=== PATIENT | female | born 1945 | race Caucasian/White ===

== ENCOUNTER 2016-04-03 15:23 | Emergency (ER) | payer OTHER ==
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
== END 2016-04-03 16:39 | disposition home or self-care (01) ==
LOC: ED 15:23
DX: S29.9XXA Unspecified injury of thorax, initial encounter (principal); V49.9XXA Car occupant (driver) (passenger) injured in unspecified traffic accident, initial encounter; Y92.410 Unspecified street and highway as the place of occurrence of the external cause; E11.9 Type 2 diabetes mellitus without complications; I10 Essential (primary) hypertension; J45.909 Unspecified asthma, uncomplicated; I48.91 Unspecified atrial fibrillation; F32.9 Major depressive disorder, single episode, unspecified; Z79.01 Long term (current) use of anticoagulants; Z79.899 Other long term (current) drug therapy